=== PATIENT | male | born 1995 ===

== ENCOUNTER 2021-09-19 04:19 | Emergency (ER) | payer BC ==
[2021-09-19] MEDS ORDERED: Sodium Chloride 0.9% 10 ML Syringe FLUSH PRN (04:41)
[2021-09-19] MEDS ORDERED: Ondansetron 4 MG/2 ML SDV IVPUSH ONE (04:41)
[2021-09-19] MEDS ORDERED: Ketorolac 30 MG/ML SDV IVPUSH ONE (04:42)
[2021-09-19] MEDS ORDERED: HYDROmorphone 0.5 MG/0.5 ML Syringe IVPUSH ONE (04:43)
[2021-09-19] MEDS ORDERED: Sodium Chloride 0.9% 1,000 ML IV SCH (04:45)
== END 2021-09-19 06:22 | disposition home or self-care (01) ==
LOC: JD.ED 04:19
DX: N20.1 Calculus of ureter (principal); Z79.899 Other long term (current) drug therapy; Z86.16 Personal history of COVID-19
CPT/HCPCS: 36415; 74176; 80053; 81001; 83690; 85025; 96361; 96374; 96375; 99284; J1170; J1885; J2405; J3490; J7030